=== PATIENT | female | born 2000 | race African-American/Black ===

== ENCOUNTER 2019-06-04 20:48 | Inpatient (IN) ==
[2019-06-04] MEDS ORDERED: ONDANSETRON 4 MG/2 ML VIAL IV PRN (20:58)
[2019-06-04] MEDS ORDERED: OXYTOCIN/LR 20 UNIT/1,000 ML BAG IV PRN (20:58)
[2019-06-04] MEDS ORDERED: BUTORPHANOL 2 MG/ML VIAL IV PRN (20:58)
[2019-06-04 21:29] LABS: Basophils % 0.3 % (0.0-0.8); Eosinophils % 0.5 % (0.00-10.9); Hematocrit 25.6 VOL% (35.7-47.0); Hemoglobin 7.5 GM/DL (12.0-16.0); Immature Granulocytes Absolute 0.09 #; Lymphocytes # 2.1 10*3/uL (1.4-4.0); Lymphocytes % 24.8 % (21.3-54.2); Mean Corpuscular HGB Conc 29.3 GM/DL (32-36); Mean Platelet Volume 10.3 FL (9.6-12.0); Monocytes % 6.6 % (1.7-12.7); NRBC # 0.06 10*3/uL; Neutrophils % 66.8 % (38.7-73.9); Platelet Count 295 T/CUMM (130-400); Red Cell Distribution Width 17.2 % (9.3-17.3); White Blood Count 8.6 T/CUMM (4-12)
[2019-06-04 21:52] LABS: Albumin 2.6 G/DL (3.4-5.0); Bilirubin,Total 0.4 MG/DL (0.2-1.0); Calcium 8.3 MG/DL (8.5-10.1); Osmolality,Calculated 270.8 MOS/KG (273-304); Total Protein 7.1 G/DL (6.4-8.3)
[2019-06-04] MEDS: LACTATED RINGERS 1,000 ML IV SCH (22:32)
[2019-06-05] MEDS ORDERED: CITRIC ACID/SODIUM CITRATE 30 ML UDCUP PO ONE (05:42)
[2019-06-05] MEDS ORDERED: FAMOTIDINE 20 MG/2 ML VIAL IV ONE (05:42)
[2019-06-05] MEDS ORDERED: ceFAZolin 3,000 MG in SYRINGE 1 EACH IV ONE (06:00)
[2019-06-05] MEDS: LACTATED RINGERS 1,000 ML IV SCH (06:08)
[2019-06-05] MEDS ORDERED: DEXAMETHASONE 4 MG/1 ML VIAL ONE (07:36)
[2019-06-05] MEDS ORDERED: BUPIVACAINE MPF 0.25% 30 ML VIAL ONE ×2 (07:36→10:39)
[2019-06-05] MEDS ORDERED: EPINEPHrine 1 MG/ML VIAL ONE (07:36)
[2019-06-05] MEDS ORDERED: BENZOCAINE 20%/MENTHOL 0.5% SPRAY 56 GM CAN TOP PRN (11:04)
[2019-06-05] MEDS ORDERED: HYDROCORTISONE 2.5% RECTAL CREAM 30 GM TUBE TOP PRN (11:04)
[2019-06-05] MEDS ORDERED: BISACODYL 10 MG SUPP RECTAL PRN (11:04)
[2019-06-05] MEDS ORDERED: oxyCODONE/ACETAMINOPHEN 5-325 MG TABLET PO PRN (11:04)
[2019-06-05] MEDS ORDERED: RHO(D) IMMUNE GLOBULIN 300 MCG SYRINGE IM ONE (11:04)
[2019-06-05] MEDS ORDERED: DIPH/TET/ACEL PERT BOOSTER VACCINE 0.5 ML VIAL IM ONE (11:04)
[2019-06-05] MEDS ORDERED: MEASLES/MUMPS/RUBELLA VACCINE 0.5 ML VIAL SUBCUT ONE (11:04)
[2019-06-05] MEDS ORDERED: LANOLIN 50% CREAM 0.3 OZ TUBE TOP PRN (11:04)
[2019-06-05] MEDS ORDERED: WITCH HAZEL PADS 100/JAR TOP PRN (11:04)
[2019-06-05] MEDS ORDERED: OXYTOCIN/LR 20 UNIT/1,000 ML BAG IV ONE (11:04)
[2019-06-05] MEDS ORDERED: ONDANSETRON 4 MG/2 ML VIAL IV PRN (11:04)
[2019-06-05] MEDS ORDERED: ACETAMINOPHEN 325 MG TABLET PO PRN (11:04)
[2019-06-05] MEDS ORDERED: fentaNYL 100 MCG/2 ML VIAL ONE (11:45)
[2019-06-05] MEDS ORDERED: MORPHINE 10 MG/10 ML VIAL ONE (11:46)
[2019-06-05] MEDS ORDERED: ePHEDrine 50 MG/ML AMP ONE (11:46)
[2019-06-05] MEDS ORDERED: PHENYLEPHRINE 1 MG/10 ML SYRINGE IV ONE (11:47)
[2019-06-05] MEDS ORDERED: BUPIVACAINE SPINAL 0.75% 2 ML AMP SPINAL ONE (11:48)
[2019-06-05] MEDS ORDERED: diphenhydrAMINE 50 MG/1 ML VIAL IV PRN (18:11)
[2019-06-05] MEDS: ceFAZolin 1,000 MG in SYRINGE 1 EACH IV SCH (21:29)
[2019-06-05] MEDS ORDERED: diphenhydrAMINE CAP 25 MG CAPSULE PO PRN (21:36)
[2019-06-06] MEDS ORDERED: HydrOXYzine PAMOATE 25 MG CAPSULE PO PRN (01:14)
[2019-06-06] MEDS: ceFAZolin 1,000 MG in SYRINGE 1 EACH IV SCH (05:48)
[2019-06-06 06:10] LABS: Basophils % 0.1 % (0.0-0.8); Hematocrit 23.7 VOL% (35.7-47.0); Hemoglobin 7.2 GM/DL (12.0-16.0); Immature Granulocytes % 1.1 %; Immature Granulocytes Absolute 0.18 #; Lymphocytes # 1.7 10*3/uL (1.4-4.0); Lymphocytes % 9.8 % (21.3-54.2); Mean Corpuscular HGB Conc 30.4 GM/DL (32-36); Monocytes % 7.8 % (1.7-12.7); Neutrophils % 81.2 % (38.7-73.9); Platelet Count 280 T/CUMM (130-400); Red Blood Count 3.04 MC/CUMM (3.8-5.5); Red Cell Distribution Width 16.9 % (9.3-17.3); White Blood Count 16.8 T/CUMM (4-12)
[2019-06-06] MEDS: DOCUSATE SODIUM 100 MG CAPSULE PO SCH ×2 (10:01→20:47)
[2019-06-06] MEDS: IBUPROFEN 800 MG TABLET PO PRN (12:25)
[2019-06-06] MEDS: oxyCODONE/ACETAMINOPHEN 5-325 MG TABLET PO PRN ×2 (12:26→20:47)
[2019-06-07 07:55] VITALS: BP 130/57
[2019-06-07] MEDS: IBUPROFEN 800 MG TABLET PO PRN (08:12)
[2019-06-07] MEDS: oxyCODONE/ACETAMINOPHEN 5-325 MG TABLET PO PRN (08:12)
[2019-06-07] MEDS: DOCUSATE SODIUM 100 MG CAPSULE PO SCH (08:12)
[2019-06-07] MEDS ORDERED: FERROUS SULFATE 325 MG TABLET PO SCH (09:00)
[2019-06-07] MEDS ORDERED: INFLUENZA VIRUS VACCINE 0.5 ML SYRINGE IM ONE (11:05)
== END 2019-06-07 13:15 | disposition home or self-care (01) | DRG 540 ==
LOC: N.LDOUT 20:48 → N.LD 20:50 → N.OB 06-05 15:35
PROVIDERS: ADMIT Specialist; ATTEND Specialist
PROC: LDCSECT (ICD-10-PCS; 2019-06-05 10:00)

== ENCOUNTER 2021-05-02 05:55 | Inpatient (IN) ==
[2021-05-02] MEDS: LACTATED RINGERS 1,000 ML IV SCH ×2 (06:18→06:50)
[2021-05-02] MEDS ORDERED: CITRIC ACID/SODIUM CITRATE 30 ML UDCUP PO ONE (06:21)
[2021-05-02] MEDS ORDERED: FAMOTIDINE 20 MG/2 ML VIAL IV ONE (06:21)
[2021-05-02] MEDS ORDERED: TRANEXAMIC ACID 1,000 MG in SODIUM CHLORIDE 0.9% 100 ML IV PRN (06:29)
[2021-05-02] MEDS ORDERED: CARBOPROST TROMETHAMINE 250 MCG/ML AMP IM PRN (06:29)
[2021-05-02] MEDS ORDERED: miSOPROStoL 200 MCG TABLET RECTAL PRN (06:29)
[2021-05-02] MEDS ORDERED: OXYTOCIN/LR 20 UNIT/1,000 ML BAG IV PRN (06:29)
[2021-05-02] MEDS ORDERED: METHYLERGONOVINE 0.2 MG/1 ML AMP IM PRN (06:29)
[2021-05-02] MEDS ORDERED: LACTATED RINGERS 1,000 ML IV SCH (06:30)
[2021-05-02] MEDS ORDERED: PHENYLEPHRINE 1 MG/10 ML SYRINGE IV ONE ×3 (06:41→08:21)
[2021-05-02] MEDS ORDERED: BUPIVACAINE SPINAL 0.75% 2 ML AMP SPINAL ONE (06:41)
[2021-05-02 06:45] LABS: Basophils % 0.3 % (0.0-0.8); Eosinophils # 0.1 10*3/uL (0.0-0.87); Eosinophils % 0.6 % (0.00-10.9); Hematocrit 28.9 VOL% (35.7-47.0); Hemoglobin 8.4 GM/DL (12.0-16.0); Immature Granulocytes % 1.3 %; Immature Granulocytes Absolute 0.12 #; Lymphocytes # 2.2 10*3/uL (1.4-4.0); Mean Corpuscular HGB Conc 29.1 GM/DL (32-36); Mean Corpuscular Volume 79.4 FL (87-102); Mean Platelet Volume 10.1 FL (9.6-12.0); Monocytes % 6.1 % (1.7-12.7); NRBC # 0.08 10*3/uL; Neutrophils % 67.7 % (38.7-73.9); Platelet Count 302 T/CUMM (130-400); Red Blood Count 3.64 MC/CUMM (3.8-5.5); Red Cell Distribution Width 17.2 % (9.3-17.3); White Blood Count 9.4 T/CUMM (4-12)
[2021-05-02] MEDS ORDERED: ceFAZolin 3,000 MG in SYRINGE 1 EACH IV ONE (07:00)
[2021-05-02 07:18] LABS: Albumin 2.5 G/DL (3.4-5.0); Bilirubin,Total 0.4 MG/DL (0.20-1.00); Osmolality,Calculated 269.8 MOS/KG (273-304); Potassium 3.8 MMOL/L (3.5-5.1); Total Protein 6.8 G/DL (6.4-8.2)
[2021-05-02 08:13] LABS: Cord Arterial Blood HCO3 16.5 MMOL/L
[2021-05-02 08:16] LABS: Cord Venous Blood HCO3 16.9 MMOL/L; Cord Venous Blood PCO2 55.4 MMHG; Cord Venous Blood PO2 22.8
[2021-05-02 08:21] LABS: Bilirubin,Urine Negative (Negative); Blood, Urine Small mg/dL (Negative); Glucose,Urine (UA) Negative (Negative); Ketones,Urine Negative (Negative); Mucus,Urine Occasional /LPF (Occasional); Nitrite,Urine Negative (Negative); Protein,Urine Negative; RBC,Urine <1 /HPF (0-4); Squamous Epithelial Cell,Urine Occasional /HPF (0-10); Urine Appearance CLEAR (Clear); Urine Color Yellow (Yellow); Urine Specific Gravity 1.017 (1.001-1.035); Urine Urobilinogen < 2.0 EU/DL (0.2-1.0)
[2021-05-02] MEDS ORDERED: ALBUMIN 5% 12.5 GM/250 ML VIAL IV ONE (08:21)
[2021-05-02] MEDS ORDERED: KETOROLAC 10 MG TABLET PO SCH (11:00)
[2021-05-02] MEDS: ACETAMINOPHEN 500 MG TABLET PO SCH ×2 (11:06→18:46)
[2021-05-02] MEDS ORDERED: WITCH HAZEL PADS 100/JAR TOP PRN (11:37)
[2021-05-02] MEDS ORDERED: DIPH/TET/ACEL PERT BOOSTER VACCINE 0.5 ML VIAL IM ONE (11:37)
[2021-05-02] MEDS ORDERED: ACETAMINOPHEN 325 MG TABLET PO PRN (11:37)
[2021-05-02] MEDS ORDERED: RHO(D) IMMUNE GLOBULIN 300 MCG SYRINGE IM ONE (11:37)
[2021-05-02] MEDS ORDERED: ONDANSETRON 4 MG/2 ML VIAL IV PRN (11:37)
[2021-05-02] MEDS ORDERED: OXYTOCIN/LR 20 UNIT/1,000 ML BAG IV ONE (11:37)
[2021-05-02] MEDS ORDERED: oxyCODONE/ACETAMINOPHEN 5-325 MG TABLET PO PRN ×2 (11:37)
[2021-05-02] MEDS ORDERED: MEASLES/MUMPS/RUBELLA VACCINE 0.5 ML VIAL SUBCUT ONE (11:37)
[2021-05-02] MEDS ORDERED: HYDROCORTISONE 2.5% RECTAL CREAM 30 GM TUBE TOP PRN (11:37)
[2021-05-02] MEDS ORDERED: BISACODYL 10 MG SUPP RECTAL PRN (11:37)
[2021-05-02] MEDS ORDERED: LANOLIN 50% CREAM 0.3 OZ TUBE TOP PRN (11:37)
[2021-05-02] MEDS ORDERED: BENZOCAINE 20%/MENTHOL 0.5% SPRAY 56 GM CAN TOP PRN (11:37)
[2021-05-02] MEDS: KETOROLAC 30 MG/1 ML VIAL IV SCH ×2 (12:14→20:17)
[2021-05-02] MEDS: ceFAZolin 2,000 MG/50 ML DUPLEX IV SCH (15:24)
[2021-05-02] MEDS: diphenhydrAMINE CAP 25 MG CAPSULE PO PRN (20:20)
[2021-05-02] MEDS: DOCUSATE SODIUM 100 MG CAPSULE PO SCH (20:21)
[2021-05-03] MEDS: ceFAZolin 2,000 MG/50 ML DUPLEX IV SCH (03:05)
[2021-05-03] MEDS: ACETAMINOPHEN 500 MG TABLET PO SCH (03:06)
[2021-05-03] MEDS: KETOROLAC 30 MG/1 ML VIAL IV SCH (03:49)
[2021-05-03 05:39] LABS: Basophils % 0.3 % (0.0-0.8); Eosinophils # 0.1 10*3/uL (0.0-0.87); Eosinophils % 0.7 % (0.00-10.9); Hemoglobin 8.5 GM/DL (12.0-16.0); Immature Granulocytes % 0.9 %; Immature Granulocytes Absolute 0.09 #; Lymphocytes # 1.7 10*3/uL (1.4-4.0); Lymphocytes % 17.6 % (21.3-54.2); Mean Corpuscular HGB Conc 29.3 GM/DL (32-36); Mean Corpuscular Volume 78.6 FL (87-102); Mean Platelet Volume 10.7 FL (9.6-12.0); Monocytes % 7.5 % (1.7-12.7); NRBC # 0.06 10*3/uL; Platelet Count 280 T/CUMM (130-400); Red Blood Count 3.69 MC/CUMM (3.8-5.5); Red Cell Distribution Width 17.2 % (9.3-17.3); White Blood Count 9.6 T/CUMM (4-12)
[2021-05-03] MEDS ORDERED: MAGNESIUM HYDROXIDE SUSP 30 ML UDCUP PO PRN (09:36)
[2021-05-03] MEDS ORDERED: SIMETHICONE CHEW 80 MG TABLET PO PRN (09:36)
[2021-05-03] MEDS: IRON (CARBONYL)/VIT C/B12/FA TABLET PO SCH (09:45)
[2021-05-03] MEDS: DOCUSATE SODIUM 100 MG CAPSULE PO SCH ×2 (09:45→21:01)
[2021-05-03] MEDS: IBUPROFEN 800 MG TABLET PO PRN (18:40)
[2021-05-03] MEDS: diphenhydrAMINE CAP 25 MG CAPSULE PO PRN (21:01)
[2021-05-04] MEDS: IBUPROFEN 800 MG TABLET PO PRN (04:49)
[2021-05-04 08:22] VITALS: BP 143/74
[2021-05-04] MEDS ORDERED: DIPH/TET/ACEL PERT BOOSTER VACCINE 0.5 ML VIAL IM ONE (08:57)
[2021-05-04] MEDS: IRON (CARBONYL)/VIT C/B12/FA TABLET PO SCH (09:43)
[2021-05-04] MEDS: DOCUSATE SODIUM 100 MG CAPSULE PO SCH (09:43)
== END 2021-05-04 11:18 | disposition home or self-care (01) | DRG 540 ==
LOC: N.LD 05:55 → N.OB 11:38
PROVIDERS: ADMIT Specialist; ATTEND Specialist
PROC: LDCSECT (ICD-10-PCS; 2021-05-02 07:30)